=== PATIENT | female | born 1950 | race Caucasian/White ===

== ENCOUNTER → 2024-07-12 | Outpatient (CLI) | payer MEDICARE, SELFPAY ==
[2024-07-12 12:03] LABS: Alanine Aminotransferase 30 U/L (10-49); Alkaline Phosphatase 81 U/L (46-116); Aspartate Amino Transferase 24 U/L (0-34); Bilirubin,Direct 0.2 mg/dL (0.0-0.3); Bilirubin,Total 0.7 mg/dL (0.3-1.2); Total Protein 7.8 gm/dL (5.7-8.2)
[2024-07-12 12:06] LABS: Prothrombin Time 11.4 Seconds (9.0-12.2)
[2024-07-12 21:13] LABS: Hepatitis A Antibody IgM Non Reactive (Non React); Hepatitis B Core Antibody IgM Non Reactive (Non React); Hepatitis B Surface Antigen Non Reactive (Non React); Hepatitis C Antibody Non Reactive (Non React)
[2024-07-12 22:47] LABS: Ferritin 27 ng/mL (7.3-270.7); Total Iron Binding Capacity 334 mcg/dL (250-425)
[2024-07-12 22:56] LABS: Iron 85 mcg/dL (50-170); Percent Iron Saturation 25 % (20-55); Unsaturated Iron Binding 249 (225-295)
[2024-07-17 06:34] LABS: ACTH, Plasma* 21 pg/mL (6-50)
[2024-07-20 07:00] LABS: ANA Screen, IFA NEGATIVE (NEGATIVE); Alpha-1-Antitrypsin* 113 mg/dL (83-199)
[2024-07-20 07:01] LABS: Ceruloplasmin* 24 mg/dL (14-48); Copper* 101 mcg/dL (70-175); Mitochondrial Ab NEGATIVE (NEGATIVE)
== END | disposition home or self-care (01) ==
PROVIDERS: PCP Internal Medicine Hospice and Palliative Medicine; Referring Provider Specialist; Visit Provider Specialist
DX: R94.5 Abnormal results of liver function studies (principal)
CPT/HCPCS: 36415; 80074; 80076; 82024; 82103; 82105; 82390; 82525; 82728; 83540; 83550; 85610; 86038; 86255

== ENCOUNTER 2024-08-31 08:35 | Day surgery (SDC) | payer MEDICARE, SELFPAY ==
[2024-08-30 11:58] VITALS: BMI 29.3
[2024-08-31] VITALS (8 sets, daily range): BP systolic 139–187; BP diastolic 65–91; PULSE 66–81; RESP 14–20; TEMP 36.3–36.4; O2SAT 92–98; BMI 29.2
[2024-08-31] MEDS: SODIUM CHLORIDE 0.9% 500 ML 500 ML 20 ML IV (09:55)
[2024-08-31] MEDS: ONDANSETRON INJ 2 MG/ML INJ 2 ML 4 MG IV (09:55)
[2024-08-31] MEDS: DiphenhydrAMINE INJ 50 MG/ML VIAL 25 MG IV (10:00)
[2024-08-31] MEDS: fentaNYL CIT INJ 50 mCg/ML AMP 2ML (ASD USE ONLY) IV (10:04)
[2024-08-31] MEDS: MIDAZOLAM INJ 1 MG/ML VIAL 2 ML (ASD USE ONLY) 2 MG IV (10:04)
== END 2024-08-31 10:48 | disposition home or self-care (01) ==
PROVIDERS: PCP Nurse Practitioner Family; Referring Provider Specialist; Visit Provider Specialist
PROC: (CPT 43239; principal; 2024-08-31 10:30)
DX: K20.90 Esophagitis, unspecified without bleeding (principal); K29.70 Gastritis, unspecified, without bleeding; K31.89 Other diseases of stomach and duodenum; E11.9 Type 2 diabetes mellitus without complications; I10 Essential (primary) hypertension; C94.80 Other specified leukemias not having achieved remission
CPT/HCPCS: 43239; A4649; J1200; J2250; J2405; J3010; J7040